=== PATIENT | male | born 2000 | race Caucasian/White ===

== ENCOUNTER 2018-10-09 11:44 | Emergency (ER) | payer SELFPAY ==
[~2018-10-09] VITALS: Ht 180.3 cm; Wt 90.7 kg
[2018-10-09 12:10] VITALS: BP 125/80
[2018-10-09] MEDS ORDERED: diphenhdrAMINE HCL 50 MG/1 ML VL IM ONE (12:45)
== END 2018-10-09 13:28 | disposition home or self-care (01) ==
LOC: ER 11:44
DX: F41.1 Generalized anxiety disorder (principal)
CPT/HCPCS: 96372; 99284; J1200

== ENCOUNTER 2021-04-15 08:37 | Emergency (ER) | payer MEDICAID ==
[~2021-04-15] VITALS: Ht 182.9 cm; Wt 104.9 kg
[2021-04-15 09:09] VITALS: BP 140/83
[2021-04-15 10:17] LABS: Basophils # (auto) 0.1 10 ^3/uL (0-0.2); Basophils % (auto) 0.7 % (0.0-2.0); Eosinophils # (auto) 0.1 10 ^3/uL (0-0.8); Eosinophils % (auto) 0.8 % (0.0-7.0); Hematocrit 45.6 % (41.0-53.0); Hemoglobin 15.4 g/dL (13.5-17.5); Lymphocytes % (auto) 21.1 % (10.0-50.0); Mean Corpuscular Hgb Conc. 33.7 g/dL (32.0-36.0); Monocytes # (auto) 0.7 10 ^3/uL (0-1.3); Monocytes % (auto) 7.8 % (0.0-12.0); Neutrophils # (auto) 6.4 10 ^3/uL (1.6-8.6); Neutrophils % (auto) 69.6 % (37.0-80.0); Red Cell Distribution Width 13.3 % (11.8-14.3); White Blood Cell 9.2 10^3/uL (4.4-10.8)
[2021-04-15 10:28] LABS: Anion Gap 7 (5-15); Blood Urea Nitrogen 15 mg/dL (7-18); Carbon Dioxide 25 mmol/L (21-32); Chloride 105 mmol/L (98-107); Glucose 98 mg/dL (74-106); Magnesium 2.2 mg/dL (1.6-2.6); Potassium 3.5 mmol/L (3.5-5.1); Sodium 137 mmol/L (136-145)
[2021-04-15 10:33] LABS: Alanine Aminotransferase 38 U/L (16-61); Alkaline Phosphatase 92 U/L (45-117); Aspartate Aminotransferase 19 U/L (15-37); BUN/Creatinine Ratio 13.3; Bilirubin, Total 0.9 mg/dL (0.2-1.0); GFR African American 103 mL/min; GFR Non-African American 85 mL/min
== END 2021-04-15 11:11 | disposition home or self-care (01) ==
LOC: ER 08:37
DX: R07.89 Other chest pain (principal)
CPT/HCPCS: 36415; 71046; 80053; 83735; 84443; 84484; 85025